=== PATIENT | male | born 1965 | race Caucasian/White ===

== ENCOUNTER → 2020-05-14 08:49 | Outpatient (CLI) | payer OTHER, SELFPAY ==
--- NOTE | ~2020-05-14 | CT_ITS ---
EXAMINATION: CT sinus wo con EXAM DATE: 05/14/2020 09:06 INDICATION: Chronic sinusitis. Headaches and dizziness. TECHNIQUE: Spiral CT of the sinuses was acquired in the axial plane. Coronal and sagittal reformatte d images were also reviewed. The dose-length product (DLP) for this examination was 282.66 mGy-cm. Iterative reconstruction (ASIR) was used as dose reduction technique. There is no prior study for co mparison. FINDINGS: The sinuses are normally developed. There is minimal bilateral ethmoid and left maxillar y sinus mucoperiosteal thickening. The ostiomeatal units are patent. There is no sinus wall thicke poly. 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 There is moderate leftward nasal septal deviation. The mastoid air cells and middle ears are well aerated. External auditory canals are patent. The orb its and visualized soft tissues are unremarkable. Tiny incidental posterior fossa lipoma near the tor cula. IMPRESSION: 1. Minimal mucoperiosteal thickening. 2. Moderate leftward nasal septal deviation. 3. Right jennifer bullosa. Reviewed, dictated and finalized at location A. OS[facility] EXPERT
== END ==
PROVIDERS: Visit Provider Allergy & Immunology
DX: J31.0 Chronic rhinitis (principal); J32.9 Chronic sinusitis, unspecified; J34.2 Deviated nasal septum
CPT/HCPCS: 70486